=== PATIENT | male | born 1960 | race Two or more races ===

== ENCOUNTER → 2022-09-25 | Outpatient (CLI) | payer OTHER | END | disposition home or self-care (01) | LOC: LAB 13:12 | PROVIDERS: ATTEND Specialist | DX: D69.6 Thrombocytopenia, unspecified (principal) ==

== ENCOUNTER 2022-10-15 06:49 | Outpatient (CLI) | payer OTHER | END 2022-10-15 06:50 | disposition home or self-care (01) | LOC: LAB 06:49 | DX: D69.3 Immune thrombocytopenic purpura (principal); E78.2 Mixed hyperlipidemia; I10 Essential (primary) hypertension ==

== ENCOUNTER → 2022-10-15 07:49 | Outpatient (CLI) | payer OTHER | END | disposition home or self-care (01) | LOC: NUCLEAR 07:49 | PROVIDERS: ATTEND Internal Medicine Hematology & Oncology | DX: D69.3 Immune thrombocytopenic purpura (principal); E78.2 Mixed hyperlipidemia; I10 Essential (primary) hypertension ==

== ENCOUNTER 2023-12-10 06:51 | Outpatient (CLI) | payer OTHER | END 2023-12-10 07:10 | disposition home or self-care (01) | LOC: TOM 06:51 | DX: M25.551 Pain in right hip (principal) ==

== ENCOUNTER 2023-12-11 10:14 | Outpatient (CLI) | payer OTHER | END 2023-12-11 10:35 | disposition home or self-care (01) | LOC: MRI 10:14 | DX: M54.40 Lumbago with sciatica, unspecified side (principal) | CPT/HCPCS: 72148 ==